=== PATIENT | male | born 1995 | race African-American/Black ===

== ENCOUNTER 2017-06-25 12:28 | Emergency (ER) | payer OTHER, MEDICAID ==
[~2017-06-25] VITALS: Ht 180.3 cm; Wt 123.0 kg
[2017-06-25] MEDS ORDERED: FLUO10CA25 PO (12:40)
[2017-06-25] MEDS ORDERED: KETOROLAC 60MG/2ML VIAL IM ONE (23:15)
[2017-06-26 00:30] VITALS: BP 127/72
== END 2017-06-26 01:50 | disposition home or self-care (01) ==
LOC: ER 12:47
DX: S39.012A Strain of muscle, fascia and tendon of lower back, initial encounter (principal); F32.9 Major depressive disorder, single episode, unspecified; F41.9 Anxiety disorder, unspecified; X58.XXXA Exposure to other specified factors, initial encounter; Y93.89 Activity, other specified; Y92.89 Other specified places as the place of occurrence of the external cause; Y99.8 Other external cause status
CPT/HCPCS: 72100; 96372; 99284; J1885